=== PATIENT | male | born 1945 | race Caucasian/White ===

== ENCOUNTER → 2016-04-15 | Outpatient (CLI) | payer BLACK LUNG, MEDICARE ==
[~2016-04-15] MED LIST: ADVAIR HFA 115/1 INH INH; ASPIR 8181 MG PO; BRILINTA 90 MG90 MG PO; CLARITIN 10MG T10 MG PO; COMBIVENT0.074 GM/I INH; DALIRESP 500500 MCG PO; DILTIAZEM 12HR60 MG PO; HUMIBID LA TAB600 MG PO; LASIX 40 MG TAB40 MG PO; LEVOTHYROXINE25 MCG PO; LIPITOR TAB 2020 MG PO; MAGNESIUM OXID400 MG PO; METOPROLOL SUCC50 MG PO; POTASSIUM CHLO10 ME2 PO; PREDNISONE10 MG PO; PROAIR HFA8.5 GM INH; SINGULAIR10 MG PO; SPIRIVA HANDIH18 MCG INH; VENTOLIN/PROVE0.5 ML INH; ZANTAC150 MG PO; ZOCOR10 MG PO; ZYLOPRIM 100 M100 MG PO
== END ==
DX: I25.10 Atherosclerotic heart disease of native coronary artery without angina pectoris (principal); Z98.61 Coronary angioplasty status; I99.8 Other disorder of circulatory system
CPT/HCPCS: 78452; A9502; J2785